=== PATIENT | female | born 1965 | race Caucasian/White ===

== ENCOUNTER 2017-02-27 11:48 | Emergency (ER) | payer SELFPAY ==
[2017-02-27 12:12] VITALS: BP 129/71; PULSE 73; RESP 18; TEMP 98.6
--- NOTE | 2017-02-27 12:30 | ED ---
General Adult HPI - General Chief complaint: Needlestick/Exposure Stated complaint: [facility]. Needle Stick Time Seen by Provider: 02/27/17 12:13 Source: patient, RN notes reviewed Mode of arrival: ambulatory Limitations: no limitations - History of Present Illness Initial comments: 51 yo female presents to the ER with cc of needle stick injury. The patient was flushing a catheter and she was accidentally poked with the needle. She states there was bleeding at the time. THe needle was not bloody and only exposed to urine. She denies any pain or other symptoms. THe patient is up to date on immunizations. Patient has not other complaints. Patient denies any recent fever , chills, shortness of breath, chest pain, back pain, abdominal pain, nausea vomiting, numbness or tingling, dysuria or hematuria, constipation or diarrhea, headaches or visual changes, or any other current symptoms. - Related Data Allergies Allergy/AdvReac Type Severity Reaction Status Date / Time No Known Allergies Allergy Verified 02/27/17 12:12 Review of Systems ROS Statement: Those systems with pertinent positive or pertinent negative responses have been documented in the HPI. ROS Other: All systems not noted in ROS Statement are negative. Past Medical History Past Medical History: No Reported History History of Any Multi-Drug Resistant Organisms: None Reported Past Surgical History: No Surgical Hx Reported Past Psychological History: No Psychological Hx Reported Smoking Status: Never smoker Past Alcohol Use History: None Reported Past Drug Use History: None Reported General Exam Limitations: no limitations General appearance: alert, in no apparent distress Neck exam: Present: normal inspection. Absent: tenderness, meningismus, lymphadenopathy Respiratory exam: Present: normal lung sounds bilaterally. Absent: respiratory distress, wheezes, rales, rhonchi, stridor Cardiovascular Exam: Present: regular rate, normal rhythm, normal heart sounds. Absent: systolic murmur, diastolic murmur, rubs, gallop, clicks Extremities exam: Present: full ROM, normal capillary refill. Absent: normal inspection (small puncture wound at base of first digit), tenderness, pedal edema, joint swelling, calf tenderness Neurological exam: Present: alert, oriented X3 Psychiatric exam: Present: normal affect, normal mood Course Vital Signs 02/27/17 12:08 Temperature 98.6 F Pulse Rate 73 Respiratory 18 Rate Blood Pressure 129/71 O2 Sat by Pulse 97 Oximetry Medical Decision Making - Medical Decision Making 51 yo female presents for needle stick injury that was exposed to urine. At this time we discussed follow up and return parameters. Care was discussed. Patient will be discharged home. Disposition Clinical Impression: Needle stick injury of finger of left hand Disposition: HOME SELF-CARE Condition: Stable Instructions: Needle Stick Injuries (ED) Additional Instructions: Please use medication as discussed. Please follow up with family doctor if symptoms have not improved over the next two days. Please return to the emergency room if your symptoms increase or worsen or for any other concerns. Referrals: Kelly Araujo DO [Primary Care Provider] - 1-2 days Time of Disposition: 12:29
== END 2017-02-27 12:45 | disposition home or self-care (01) ==
LOC: EC 11:48
DX: S61.032A Puncture wound without foreign body of left thumb without damage to nail, initial encounter (principal); W46.0XXA Contact with hypodermic needle, initial encounter; Y92.69 Other specified industrial and construction area as the place of occurrence of the external cause; Y93.89 Activity, other specified; Y99.0 Civilian activity done for income or pay
CPT/HCPCS: 36415; 86704; 86803; 87340; 87390; 99283

== ENCOUNTER → 2018-10-07 | Outpatient (CLI) | payer OTHER ==
--- NOTE | 2018-10-07 16:56 | XR ---
EXAMINATION TYPE: XR pelvis AP view DATE OF EXAM: 10/07/2018 COMPARISON: NONE HISTORY: Pain TECHNIQUE: Single view FINDINGS: Pelvic ring is intact. Proximal femurs and hip joints are intact. Sacroiliac joints appear normal. There is no sign of hip dysplasia. IMPRESSION: Negative pelvis exam.
--- NOTE | 2018-10-07 16:57 | XR ---
EXAMINATION TYPE: XR lumbar spine 2 or 3V DATE OF EXAM: 10/07/2018 COMPARISON: NONE HISTORY: Pain TECHNIQUE: 3 views FINDINGS: Lumbar vertebra show 1 cm anterior subluxation of L5 in relation to S1. There is probably b ilateral L5 spondylolysis. There is no compression fracture. There is disc space narrowing and spurri ng at L4-5 and L5-S1. Sacroiliac joints are intact. IMPRESSION: First-degree L5-S1 spondylolisthesis with L5 spondylolysis. Degenerative disc narrowing i n the lower lumbar spine.
--- NOTE | 2018-10-07 16:57 | XR ---
EXAMINATION TYPE: XR sacrum coccyx DATE OF EXAM: 10/07/2018 COMPARISON: NONE HISTORY: Back pain TECHNIQUE: 3 views. FINDINGS: There is L5 spondylolysis. There is first-degree L5-S1 spondylolisthesis. Sacral segments have isabela l alignment. Sacroiliac joints are intact. I see no fracture. IMPRESSION: L5 spondylolysis with first-degree L5-S1 spondylolisthesis.
== END | disposition home or self-care (01) ==
LOC: RADXRMAIN 16:27
PROVIDERS: ATTEND Emergency Medicine
DX: M43.17 Spondylolisthesis, lumbosacral region (principal); M51.36 Other intervertebral disc degeneration, lumbar region; S30.0XXA Contusion of lower back and pelvis, initial encounter
CPT/HCPCS: 72100; 72170; 72220

== ENCOUNTER → 2022-03-13 | Outpatient (CLI) | payer OTHER ==
--- NOTE | 2022-03-14 09:03 | MM ---
Reason for Exam: Screening (asymptomatic). Baseline mammogram. Patient History: Menarche at age 10. First Full-Term at age 24. Postmenopausal. Risk Values: Palak 5 year model risk: 1.2%. NCI Lifetime model risk: 7.9%. Prior Study Comparison: Patient's first Mammogram. No prior studies available for comparison. Tissue Density: The breast tissue is heterogeneously dense. This may lower the sensitivity of mammography. Findings: Analyzed By CAD. Benign-appearing calcifications in the left breast. There is no suspicious group of microcalcifications or new suspicious mass in either breast. Overall Assessment: Benign, BI-RAD 2 Management: Screening Mammogram of both breasts in 1 year. A clinical breast exam by your physician is recommended on an annual basis and results should be correlated with mammographic findings. [facility] will attempt to contact patient to return for supplemental views and ultrasound if indicated. Electronically signed and approved by: Paul Lakhani DO
== END | disposition home or self-care (01) ==
LOC: RADMAMWWP 07:56
PROVIDERS: ATTEND Obstetrics & Gynecology
DX: Z12.31 Encounter for screening mammogram for malignant neoplasm of breast (principal); Z78.0 Asymptomatic menopausal state
CPT/HCPCS: 77067

== ENCOUNTER → 2022-12-12 | Outpatient (CLI) | payer BC ==
[2022-12-13 02:28] LABS: Basophils # (A) 0.05 X 10*3/uL (0.00-0.10); Basophils % (A) 0.7 %; Eosinophils # (A) 0.09 X 10*3/uL (0.04-0.35); Eosinophils % (A) 1.2 %; HCT 44.3 % (37.2-46.3); HGB 14.4 d/dL (12.0-15.0); Lymphocytes # (A) 2.03 X 10*3/uL (0.90-5.00); MCH 29.3 pg (27.0-32.0); MCHC 32.5 d/dL (32.0-37.0); Mean Platelet Volume 10.6 FL (9.5-12.2); Monocytes # (A) 0.39 X 10*3/uL (0.20-1.00); Monocytes % (A) 5.4 %; NRBC Per 100 WBC 0 X 10*3/uL (0.00-0.01); Neutrophils # (A) 4.68 X 10*3/uL (1.80-7.70); Neutrophils % (A) 64.4 %; Platelet Count 263 X 10*3/uL (140-440); RBC 4.92 X 10*6/uL (4.10-5.20); RDW 12.7 % (11.5-14.5); WBC 7.26 X 10*3/uL (4.50-10.00)
[2022-12-13 02:57] LABS: ALT 79 U/L (8-44); AST 68 U/L (13-35)
[2022-12-13 05:22] LABS: Hepatitis B Surface AB- Quant 3.5 mIU/mL
[2022-12-13 06:03] LABS: Hepatitis B Surface Antigen Nonreactive; Hepatitis C IgG Antibody Nonreactive
== END | disposition home or self-care (01) ==
LOC: LABWHC1 15:42
PROVIDERS: ATTEND Dermatology MOHS-Micrographic Surgery
DX: L40.0 Psoriasis vulgaris (principal)
CPT/HCPCS: 36415; 82565; 84450; 84460; 85025; 86704; 86706; 86803; 87340

== ENCOUNTER → 2022-12-12 | Outpatient (CLI) | payer BC ==
--- NOTE | 2022-12-12 21:32 | XR ---
EXAMINATION TYPE: XR chest 2V DATE OF EXAM: 12/12/2022 4:26 PM CLINICAL INDICATION:Female, 57 years old with history of L40.0; [facility] COMPARISON: Chest radiographs from 07/08/2020 TECHNIQUE: XR chest 2V Frontal and lateral views of the chest. FINDINGS: Lungs/Pleura: No cavitary lesions identified. There is no evidence of pleural effusion, focal consoli dation, or pneumothorax. Pulmonary vascularity: Unremarkable. Heart/mediastinum: Cardiomediastinal silhouette is unremarkable. Musculoskeletal: No acute osseous pathology. IMPRESSION: No cavitary lesions suggest active TB. No acute cardiopulmonary disease/process.
== END | disposition home or self-care (01) ==
LOC: RADXRMAIN 16:10
PROVIDERS: ATTEND Dermatology MOHS-Micrographic Surgery
DX: L40.0 Psoriasis vulgaris (principal)
CPT/HCPCS: 71046

== ENCOUNTER 2023-02-18 19:43 | Emergency (ER) | payer BC ==
--- NOTE | 2023-02-18 20:56 | ED ---
Fall HPI - General Chief Complaint: Fall Stated Complaint: Fall, Head Injury Time Seen by Provider: 02/18/23 20:01 Source: EMS, RN notes reviewed, old records reviewed Mode of arrival: EMS Limitations: no limitations - History of Present Illness Initial Comments: This is a 57-year-old female here for fall. Patient fell forward a frequent vomiting or chest pain chest wall pain. Patient has no other injuries aside. No shortness of breath. No modifying factors for symptoms MD Complaint: fall -: hour(s) Fall From: wheelchair When Fall Occurred: 1-[address] Fall Occurred: home Loss of Consciousness: none Prolonged Down Time?: no Symptoms Prior to Fall: none Location: head, chest Severity: moderate Severity scale (1-10): 3 Context: tripped/slipped Associated Symptoms: denies - Related Data Home Medications Medication Instructions Recorded Confirmed Risankizumab-Rzaa [Skyrizi] 1 dose SQ Q30D 02/18/23 02/18/23 Sertraline [Zoloft] 100 mg PO DAILY 02/18/23 02/18/23 metFORMIN HCL [Glucophage] 500 mg PO BID 02/18/23 02/18/23 Allergies Allergy/AdvReac Type Severity Reaction Status Date / Time No Known Allergies Allergy Verified 02/18/23 22:30 Review of Systems ROS Statement: Those systems with pertinent positive or pertinent negative responses have been documented in the HPI. ROS Other: All systems not noted in ROS Statement are negative. Past Medical History Past Medical History: No Reported History, Diabetes Mellitus History of Any Multi-Drug Resistant Organisms: None Reported Past Surgical History: No Surgical Hx Reported Past Psychological History: No Psychological Hx Reported Smoking Status: Never smoker Past Alcohol Use History: None Reported Past Drug Use History: None Reported General Exam Limitations: no limitations General appearance: alert, in no apparent distress Head exam: Present: atraumatic, normocephalic, normal inspection Eye exam: Present: normal appearance, PERRL, EOMI. Absent: scleral icterus, conjunctival injection, periorbital swelling ENT exam: Present: normal exam, mucous membranes moist Neck exam: Present: normal inspection. Absent: tenderness, meningismus, lymphadenopathy Respiratory exam: Present: normal lung sounds bilaterally. Absent: respiratory distress, wheezes, rales, rhonchi, stridor Cardiovascular Exam: Present: regular rate, normal rhythm, normal heart sounds. Absent: systolic murmur, diastolic murmur, rubs, gallop, clicks GI/Abdominal exam: Present: soft, normal bowel sounds. Absent: distended, tenderness, guarding, rebound, rigid Extremities exam: Present: normal inspection, full ROM, normal capillary refill. Absent: tenderness, pedal edema, joint swelling, calf tenderness Back exam: Present: normal inspection Neurological exam: Present: alert, oriented X3, CN II-XII intact Psychiatric exam: Present: normal affect, normal mood Skin exam: Present: warm, dry, intact, normal color. Absent: rash Course Vital Signs 02/18/23 02/18/23 19:47 23:58 Temperature 98.8 F 98.2 F Pulse Rate 84 80 Respiratory 16 18 Rate Blood Pressure 148/87 136/82 O2 Sat by Pulse 95 96 Oximetry - Reevaluation(s) Reevaluation #1: Medical record is reviewed Reevaluation #2: Patient symptoms are changed Reevaluation #3: patient informed of results and questions answered Reevaluation #4: Was pt. sent in by a medical professional or institution (, PA, [facility], urgent care, hospital, or residential...) When possible be specific @ -no Did you speak to anyone other than the patient for history (EMS, parent, family, police, friend...)? What history was obtained from this source @ -no Did you review nursing and triage notes (agree or disagree)? Why? @ -agree Are old charts reviewed (outside hosp., previous admission, EMS record, old EKG, old radiological studies, urgent care reports/EKG's, residential records)? Report findings @ -yes Differential Diagnosis (chest pain, altered mental status, abdominal pain women, abdominal pain men, vaginal bleeding, weakness, fever, dyspnea, syncope, headache, dizziness, GI bleed, back pain, seizure, CVA, palpatations, mental health, musculoskeletal)? @ -prior EKG interpreted by me (3pts min.). @ -no X-rays interpreted by me (1pt min.). @ -yes CT interpreted by me (1pt min.). @ -yes U/S interpreted by me (1pt. min.). @ -no What testing was considered but not performed or refused? (CT, X-rays, U/S, labs)? Why? @ -none What meds were considered but not given or refused? Why? @ -none Did you discuss the management of the patient with other professionals (professionals i.e. , PA, [facility] [facility], lab, RT, psych nurse, executive secretary social welfare, billing and quality technician, teacher, psychological operations officer, social work case manager)? Give summary @ -no Was smoking cessation discussed for >3mins.? @ -no Was critical care preformed (if so, how long)? @ -no Were there social determinants of health that impacted care today? How? (Homelessness, low income, unemployed, alcoholism, drug addiction, transportation, low edu. Level, literacy, decrease access to med. care, retirement, rehab)? @ -none Was there de-escalation of care discussed even if they declined (Discuss DNR or withdrawal of care, Hospice)? DNR status @ -no What co-morbidities impacted this encounter? (DM, HTN, Smoking, COPD, CAD, Cancer, CVA, ARF, Chemo, Hep., AIDS, mental health diagnosis, sleep apnea, morbid obesity)? @ -none Was patient admitted / discharged? Hospital course, mention meds given and route, prescriptions, significant lab abnormalities, going to OR and other pertinent info. @ - 57 male to the emergency department for evaluation of fall with chest pain. Patient has severe chest pain currently. No somatic injury noted and patient can be discharged home Discharge Undiagnosed new problem with uncertain prognosis? @ -no Drug Therapy requiring intensive monitoring for toxicity (Heparin, Nitro, Insulin, Cardizem)? @ -no Were any procedures done? @ -no Diagnosis/symptom? @ -Fall chest wall contusion Acute, or Chronic, or Acute on Chronic? @ -Acute Uncomplicated (without systemic symptoms) or Complicated (systemic symptoms)? @ -Complicated Side effects of treatment? @ -no Exacerbation, Progression, or Severe Exacerbation? @ -exacerbation Poses a threat to life or bodily function? How? (Chest pain, [place], [place], pneumonia, PE, COPD, DKA, ARF, appy, cholecystitis, CVA, Diverticulitis, Homicidal, Suicidal, threat to staff... and all critical care pts) @ -no Medical Decision Making - Medical Decision Making 57 male to the emergency department for evaluation of fall with chest pain. Patient has severe chest pain currently. No somatic injury noted and patient can be discharged home - Radiology Data Radiology results: report reviewed (CT brain C-spine chest x-rays negative for acute disease), image reviewed Disposition Clinical Impression: Fall, Chest wall contusion Disposition: HOME SELF-CARE Condition: Good Instructions (If sedation given, give patient instructions): Costochondritis (ED) Is patient prescribed a controlled substance at d/c from ED?: No Referrals: Juan C Teresa DO [Primary Care Provider] - 1-2 days Time of Disposition: 23:00
--- NOTE | 2023-02-18 22:00 | CT ---
EXAMINATION TYPE: CT brain cspine wo con CT DLP: 1497.4 mGycm, Automated exposure control for dose reduction was used. DATE OF EXAM: 02/18/2023 9:25 PM COMPARISON: None. CLINICAL INDICATION:Female, 57 years old with history of fall; Fell off chair onto concrete floor, hi s back of head. TECHNIQUE: Brain: Multiple axial CT images of the brain were obtained without IV contrast. Cspine: Axial CT images from the skull base to the inferior aspect of T2 we obtained without intraven ous contrast. Coronal and sagittal reformatted images were also reviewed. FINDINGS: Brain: Extra-axial spaces: No abnormal extra-axial fluid collections. Ventricular system: Within normal limits Cerebral parenchyma: No acute intraparenchymal hemorrhage or mass effect. The manzo-white junction is well differentiated. Cerebellum: Unremarkable. Mass effect: No evidence of midline shift. Intracranial vasculature: unremarkable Soft tissues: Left posterior scalp hematoma Calvarium/osseous structures: No depressed skull fracture. Paranasal sinuses and mastoid air cells: Clear. Visualized orbits: Orbital contents are intact. Cervical spine: Fracture: None. Osseous structures: Multilevel degenerative disc disease changes with endplate spurring and disc oste ophyte complex's. Vertebral alignment: Within normal limits. Spinal canal/Neural Foramina: No evidence of significant spinal canal narrowing. No evidence for sign ificant neural foraminal stenosis. Neck soft tissues: Prevertebral soft tissues are within normal limits. Other: The airway is patent. The lung apices are clear. IMPRESSION: 1. No acute intracranial process. 2. Left posterior scalp hematoma without evidence of fracture. 3. No evidence of cervical spine fracture. 4. Mild multilevel degenerative disc disease.
--- NOTE | 2023-02-18 22:05 | XR ---
EXAMINATION TYPE: XR chest 1V DATE OF EXAM: 02/18/2023 9:38 PM CLINICAL INDICATION:Female, 57 years old with history of fall; H COMPARISON: Chest radiographs from TECHNIQUE: XR chest 1V Frontal view of the chest. FINDINGS: Lungs/Pleura: There is no evidence of pleural effusion, focal consolidation, or pneumothorax. Pulmonary vascularity: Unremarkable. Heart/mediastinum: Cardiomediastinal silhouette is unremarkable. Musculoskeletal: No acute osseous pathology. IMPRESSION: No acute cardiopulmonary disease/process.
[2023-02-18] MEDS ORDERED: ACETAMINOPHEN TAB 325 MG TAB PO STA (23:02)
[2023-02-19 00:13] VITALS: BP 136/82; PULSE 80; RESP 18; TEMP 98.2
== END 2023-02-19 00:03 | disposition home or self-care (01) ==
LOC: EC 19:43
DX: S20.219A Contusion of unspecified front wall of thorax, initial encounter (principal); E11.9 Type 2 diabetes mellitus without complications; Z79.84 Long term (current) use of oral hypoglycemic drugs; W05.0XXA Fall from non-moving wheelchair, initial encounter
CPT/HCPCS: 70450; 71045; 72125; 99285

== ENCOUNTER → 2024-01-31 | Outpatient (CLI) | payer BC ==
--- NOTE | 2024-01-31 14:57 | XR ---
EXAMINATION TYPE: XR chest 2V DATE OF EXAM: 01/31/2024 COMPARISON: 02/18/2023 HISTORY: 58-year-old female L40.0, psoriasis, yearly checkup TECHNIQUE: Frontal and lateral views FINDINGS: The cardiomediastinal silhouette, aorta, and pulmonary vasculature are within normal limits. Lungs an d pleural spaces are clear. IMPRESSION: No acute cardiopulmonary process. [facility], , 01/31/2024 2:55 PM
[2024-01-31 18:31] LABS: Basophils # (A) 0.05 X 10*3/uL (0.00-0.10); Basophils % (A) 0.6 %; Eosinophils # (A) 0.12 X 10*3/uL (0.04-0.35); Eosinophils % (A) 1.5 %; HCT 43.5 % (37.2-46.3); HGB 14.5 g/dL (12.0-15.0); Lymphocytes # (A) 2.06 X 10*3/uL (0.90-5.00); Lymphocytes % (A) 26.1 %; MCH 29.7 pg (27.0-32.0); MCHC 33.3 g/dL (32.0-37.0); Mean Platelet Volume 10.9 FL (9.5-12.2); Monocytes # (A) 0.48 X 10*3/uL (0.20-1.00); Monocytes % (A) 6.1 %; NRBC Per 100 WBC 0 X 10*3/uL (0.00-0.01); Neutrophils # (A) 5.16 X 10*3/uL (1.80-7.70); Neutrophils % (A) 65.4 %; Platelet Count 229 X 10*3/uL (140-440); RBC 4.89 X 10*6/uL (4.10-5.20); RDW 12.4 % (11.5-14.5); WBC 7.89 X 10*3/uL (4.50-10.00)
[2024-01-31 18:46] LABS: ALT 34 U/L (8-44); AST 25 U/L (13-35)
== END | disposition home or self-care (01) ==
LOC: LABWHC1 13:31
PROVIDERS: ATTEND Physician Assistant Medical
CPT/HCPCS: 36415; 71046; 82565; 84450; 84460; 85025

== ENCOUNTER → 2024-04-23 | Outpatient (CLI) | payer BC ==
--- NOTE | 2024-04-23 15:31 | MM ---
Reason for Exam: Screening (asymptomatic). Last mammogram was performed 2 year(s) and 1 month(s) ago. Patient History: Menarche at age 10. First Full-Term at age 24. Postmenopausal. Paternal aunt had breast cancer, age 65. Risk Values: Palak 5 year model risk: 1.3%. NCI Lifetime model risk: 7.6%. Prior Study Comparison: 03/13/2022 Bilateral MG screening mammo w CAD, [facility]. Tissue Density: The breasts are heterogeneously dense, which may obscure small masses. Findings: Analyzed By CAD. A group of benign-appearing dystrophic calcifications in the left breast is redemonstrated. There is dislocation of calcifications seen bilaterally. There is a new 5 mm focal asymmetry in the left breast middle to posterior and slightly medial aspect on the CC view only that warrants further workup. Overall Assessment: Incomplete: need additional imaging evaluation, BI-RAD 0 Management: Diagnostic Mammogram of the left breast. Advise 3-D spot CC and 3-D true lateral views if possible. Patient should continue monthly self-breast exams. A clinical breast exam by your physician is recommended on an annual basis. This exam should not preclude additional follow-up of suspicious palpable abnormalities. Note on Palak scores and lifetime risk: 1. A Palak score greater than 3% is considered moderate risk. If this is the case, consider specialist referral to assess eligibility for a risk reducing agent. 2. If overall lifetime risk for the development of breast cancer is 20% or higher, the patient may qualify for future screening with alternating mammogram and breast MRI. [facility], , 04/23/2024 3:28 PM. Electronically signed and approved by: Bryce Burton M.D.
== END | disposition home or self-care (01) ==
LOC: RADMAMWWP 14:02
PROVIDERS: ATTEND Family Medicine
DX: Z12.31 Encounter for screening mammogram for malignant neoplasm of breast (principal); R92.333 Mammographic heterogeneous density, bilateral breasts; Z78.0 Asymptomatic menopausal state; Z80.3 Family history of malignant neoplasm of breast
CPT/HCPCS: 77067

== ENCOUNTER → 2024-05-12 | Outpatient (CLI) | payer BC ==
--- NOTE | 2024-05-12 08:42 | MM ---
Reason for Exam: Additional evaluation requested from abnormal screening. Last screening mammogram was performed less than 1 month ago. Patient History: Menarche at age 10. First Full-Term at age 24. Postmenopausal. Paternal aunt had breast cancer, age 65. Risk Values: Palak 5 year model risk: 1.3%. NCI Lifetime model risk: 7.6%. Prior Study Comparison: 03/13/2022 Bilateral MG screening mammo w CAD, [facility]. 04/23/2024 Bilateral MG screening mammo w CAD, [facility]. Tissue Density: Left: The breasts are heterogeneously dense, which may obscure small masses. Findings: Analyzed By CAD. No distinct new lesion persists on additional views. Overall Assessment: Negative, BI-RAD 1 Management: Screening Mammogram of both breasts in 1 year. Return to routine follow-up. Results were given to the patient verbally at the time of exam. Patient should continue monthly self-breast exams. A clinical breast exam by your physician is recommended on an annual basis. This exam should not preclude additional follow-up of suspicious palpable abnormalities. Note on Palak scores and lifetime risk: 1. A Palak score greater than 3% is considered moderate risk. If this is the case, consider specialist referral to assess eligibility for a risk reducing agent. 2. If overall lifetime risk for the development of breast cancer is 20% or higher, the patient may qualify for future screening with alternating mammogram and breast MRI. [facility], , 05/12/2024 8:39 AM. Electronically signed and approved by: Bryce Burton M.D.
== END | disposition home or self-care (01) ==
LOC: RADMAMWWP 08:01
PROVIDERS: ATTEND Family Medicine
DX: R92.8 Other abnormal and inconclusive findings on diagnostic imaging of breast (principal); R92.333 Mammographic heterogeneous density, bilateral breasts; Z78.0 Asymptomatic menopausal state; Z80.3 Family history of malignant neoplasm of breast
CPT/HCPCS: 77061; 77065